=== PATIENT | male | born 1940 | race Caucasian/White ===

== ENCOUNTER 2022-12-29 10:36 | Inpatient (IN) | payer MEDICARE, OTHER ==
[2022-12-29] VITALS (11 sets, daily range): BP systolic 126–175; BP diastolic 60–93
[~2022-12-29] VITALS: Ht 167.6 cm; Wt 74.5 kg
[~2022-12-29 10:36] MED LIST: ASPI-1444 PO; ASPIRIN 81 MG CHEWABLE TABLET ONE; DIAZEPAM 5 MG TABLET ONE; DiphenhydrAMINE HCL 50 MG CAPSULE ONE; LOSA-382 PO; NITR0.4T52 SL; PANT-31 PO; ROSU20TA73 PO; SODIUM CHLORIDE 0.9% 1,000 ML IV ONE; SODIUM CHLORIDE 0.9% 1,000 ML ONE; TAMS-13 PO; TICA90TA PO
[2022-12-29] MEDS ORDERED: ASPIRIN 81 MG CHEWABLE TABLET PO ONE (12:00)
[2022-12-29] MEDS ORDERED: DIAZEPAM 5 MG TABLET PO ONE (12:00)
[2022-12-29] MEDS ORDERED: DiphenhydrAMINE HCL 50 MG CAPSULE PO ONE (12:00)
[2022-12-29] MEDS ORDERED: MIDAZOLAM HCL 2 MG/2 ML VIAL ONE (13:48)
[2022-12-29] MEDS ORDERED: FentaNYL CITRATE PF 100 MCG/2 ML VIAL ONE (13:48)
[2022-12-29] MEDS ORDERED: IOHEXOL 300 MG/ML 100 ML VIAL ONE (13:49)
[2022-12-29] MEDS ORDERED: LIDOCAINE/PF 1% 30 ML VIAL ONE (13:49)
[2022-12-29] MEDS ORDERED: SODIUM BICARBONATE 50 MEQ/50 ML VIAL ONE (13:49)
[2022-12-29] MEDS ORDERED: HEPARIN SODIUM 1000 UNITS/NS 1,000 ML IARTER ONE ×2 (14:00→14:45)
[2022-12-29] MEDS ORDERED: LIDOCAINE 1% 30 ML/SOD BICARB 8.4% 4 ML SQ ONE ×2 (14:00→14:45)
[2022-12-29] MEDS ORDERED: IOHEXOL 300 MG/ML 100 ML VIAL ICOR ONE (14:00)
[2022-12-29] MEDS ORDERED: HEPARIN SODIUM 2,000 UNITS in HEPARIN SODIUM 1000 UNITS/NS 1,000 ML IARTER ONE (14:00)
[2022-12-29] MEDS ORDERED: IOHEXOL 300 MG/ML 100 ML VIAL IARTER ONE ×2 (14:45→15:30)
[2022-12-29] MEDS ORDERED: FentaNYL CITRATE PF 100 MCG/2 ML VIAL IVP ONE ×2 (14:45→15:45)
[2022-12-29] MEDS ORDERED: MIDAZOLAM HCL 2 MG/2 ML VIAL IVP ONE ×2 (14:45→15:45)
[2022-12-29] MEDS ORDERED: HEPARIN SODIUM,PORCINE 1,000 UNITS/ML 10 ML VIAL IVP ONE (15:00)
[2022-12-29] MEDS ORDERED: NITROGLYCERIN 50 MG/D5% WATER 250 ML ONE (15:11)
[2022-12-29] MEDS ORDERED: NITROGLYCERIN/D5W 50 MG/250 ML IV BOTTLE ICOR ONE (15:15)
[2022-12-29] MEDS ORDERED: HydrALAZINE HCL 20 MG/ML VIAL ONE (15:39)
[2022-12-29] MEDS ORDERED: TICAGRELOR 90 MG TABLET ONE (15:39)
[2022-12-29] MEDS ORDERED: TICAGRELOR 90 MG TABLET PO ONE (15:45)
[2022-12-29] MEDS ORDERED: HydrALAZINE HCL 20 MG/ML VIAL IVP ONE (15:45)
[2022-12-29] MEDS ORDERED: ONDANSETRON HCL 4 MG/2 ML VIAL IVP PRN (17:00)
[2022-12-29] MEDS ORDERED: ACETAMINOPHEN 325 MG TABLET PO PRN (17:00)
[2022-12-29] MEDS: LOSARTAN POTASSIUM 50 MG TABLET PO SCH (18:44)
[2022-12-29] MEDS: DOCUSATE SODIUM 100 MG CAPSULE PO SCH (20:55)
[2022-12-29] MEDS: TICAGRELOR 90 MG TABLET PO SCH (20:55)
[2022-12-29] MEDS: FAMOTIDINE 20 MG TABLET PO SCH (20:55)
[2022-12-29] MEDS ORDERED: ROSUVASTATIN CALCIUM 20 MG TABLET PO SCH (21:00)
[2022-12-30 00:09] VITALS: BP 135/68
[2022-12-30 04:04] VITALS: BP 138/65
[2022-12-30 06:42] LABS: BASOPHILS % (AUTO) 0.4 % (0.0-2.0); EOSINOPHILS % (AUTO) 1.1 % (1.0-6.0); HEMATOCRIT 45.8 % (41-53); HEMOGLOBIN 15.2 g/dL (13.5-17.5); LYMPHOCYTES # (AUTO) 1.3 K/uL (1.0-4.8); LYMPHOCYTES % (AUTO) 12.3 % (22.0-44.0); MEAN CORPUSCULAR HGB CONC 33.1 G/dL (31.0-37.0); MEAN CORPUSCULAR VOLUME 91 fL (80-100); MONOCYTES # (AUTO) 1.2 K/uL (0.1-1.0); MONOCYTES % (AUTO) 10.9 % (2.0-9.0); NEUTROPHILS % (AUTO) 75.3 % (40.0-70.0); PLATELET COUNT (AUTO) 243 K/uL (150-450); RED BLOOD CELL COUNT(AUTO) 5.05 MIL/uL (4.50-5.90); RED CELL DISTRIBUTION WIDTH 14.4 % (11.5-14.5)
[2022-12-30 07:25] LABS: ALANINE AMINOTRANSFERASE 22 U/L (12-78); ALBUMIN 3.2 g/dL (3.4-5.0); ALKALINE PHOSPHATASE 57 U/L (46-116); ANION GAP 11 mmol/L (8-16); ASPARTATE AMINOTRANSFERASE 78 U/L (15-37); CALCIUM, TOTAL 8.7 mg/dL (8.8-10.5); CARBON DIOXIDE 22 mmol/L (22-29); CHLORIDE 105 mmol/L (98-107); CREATININE 0.93 mg/dL (0.60-1.30); GLOMERULAR FILTR. RATE CALC > 60 mL/min (>60); GLUCOSE,RANDOM 102 mg/dL (70-110); POTASSIUM 3.8 mmol/L (3.5-5.1); SODIUM SERUM 138 mmol/L (136-145); TOTAL PROTEIN, SERUM 6.7 g/dL (6.4-8.2)
[2022-12-30 07:34] VITALS: BP 137/66
[2022-12-30] MEDS: OxyCODONE HCL/ACETAMINOPHEN 5-325 MG TABLET PO PRN ×2 (08:51→14:48)
[2022-12-30] MEDS: TICAGRELOR 90 MG TABLET PO SCH (08:51)
[2022-12-30] MEDS: DOCUSATE SODIUM 100 MG CAPSULE PO SCH (08:51)
[2022-12-30] MEDS: FAMOTIDINE 20 MG TABLET PO SCH (08:52)
[2022-12-30] MEDS: LOSARTAN POTASSIUM 50 MG TABLET PO SCH (08:52)
[2022-12-30] MEDS ORDERED: ASPIRIN 81 MG CHEWABLE TABLET PO SCH (09:00)
[2022-12-30 11:31] VITALS: BP 139/72
[2022-12-30] MEDS ORDERED: TICA90TA PO (13:11)
[2022-12-30] MEDS ORDERED: ASPI-1444 PO (13:11)
== END 2022-12-30 15:15 | disposition home or self-care (01) | DRG 247 ==
LOC: CATHLAB 10:36 → 5S 10:37
PROVIDERS: ADMIT Internal Medicine Interventional Cardiology; ATTEND Internal Medicine Interventional Cardiology
PROC: 4A023N7 Measurement of Cardiac Sampling and Pressure, Left Heart, Percutaneous Approach (ICD-10-PCS; principal; 2022-12-29)
PROC: 027036Z Dilation of Coronary Artery, One Artery with Three Drug-eluting Intraluminal Devices, Percutaneous Approach (ICD-10-PCS; 2022-12-29)
PROC: B2111ZZ Fluoroscopy of Multiple Coronary Arteries using Low Osmolar Contrast (ICD-10-PCS; 2022-12-29)
PROC: B240ZZ3 Ultrasonography of Single Coronary Artery, Intravascular (ICD-10-PCS; 2022-12-29)
DX: I25.10 Atherosclerotic heart disease of native coronary artery without angina pectoris (principal); I10 Essential (primary) hypertension; N40.0 Benign prostatic hyperplasia without lower urinary tract symptoms; E78.5 Hyperlipidemia, unspecified; I25.2 Old myocardial infarction; Z88.2 Allergy status to sulfonamides; Z79.82 Long term (current) use of aspirin; Z79.01 Long term (current) use of anticoagulants; Z79.899 Other long term (current) drug therapy
CPT/HCPCS: 75960; 80053; 85025; 87081; 92920; 92928; 93005; G0378; J0360; J2250; J3010; J3490; J7030; Q9967; 36415-L1; 36415-TC